=== PATIENT | male | born 1985 | race Caucasian/White ===

== ENCOUNTER → 2020-04-22 15:02 | Outpatient (CLI) | payer BC, SELFPAY ==
--- NOTE | 2020-04-22 15:07 | XR_ITS ---
PROCEDURE: XR CERVICAL SPINE 4V CLINICAL INDICATION: pain COMPARISON: No exams were available for comparison FINDINGS: Normal Alignment No fracture or dislocation. No lytic or blastic change. No significant degenerative change. The disc spaces are preserved. No foraminal narrowing. No cervical ribs IMPRESSION: Negative cervical spine Dictated by: Parth Peterson MD 04/22/2020 16:33 Parth Peterson MD in [place] 04/22/2020 16:33
== END ==
PROVIDERS: PCP Family Medicine; Visit Provider Family Medicine
DX: M54.2 Cervicalgia (principal)
CPT/HCPCS: 72050

== ENCOUNTER → 2020-09-02 14:09 | Outpatient (CLI) | payer BC, SELFPAY | PROVIDERS: PCP Family Medicine; Visit Provider Family Medicine | DX: R30.9 Painful micturition, unspecified (principal) | CPT/HCPCS: 87086 ==

== ENCOUNTER → 2021-07-13 17:06 | Outpatient (CLI) | payer BC, SELFPAY ==
[2021-07-13 17:33] LABS: Creatine Kinase 113 U/L (55-170); Uric Acid 4.6 mg/dl (3.5-8.5)
[2021-07-13 17:38] LABS: C-Reactive Protein 2.5 mg/L (0-4)
[2021-07-13 19:04] LABS: Erythrocyte Sedimentation Rate 15 mm/hr (0-15)
[2021-07-15 13:15] LABS: RA Latex Turbid. <10.0 IU/mL (<14.0)
[2021-07-16 18:10] LABS: Antinuclear Antibodies, IFA Negative (.)
== END ==
PROVIDERS: Visit Provider Family Medicine
DX: K58.0 Irritable bowel syndrome with diarrhea (principal)
CPT/HCPCS: 82550; 84550; 85651; 86038; 86140; 86431